=== PATIENT | male | born 1995 | race Caucasian/White ===

== ENCOUNTER 2016-06-02 23:23 | Emergency (ER) | payer OTHER ==
--- NOTE | 2016-06-02 23:37 | ED AMS/SEIZURE/WEAK/DIZZY ---
See Addendum History of Present Illness General Chief Complaint: ETOH/Drug Related Complaint Stated Complaint: BIBA FOR ETOH/UNCOOPERATIVE Source: patient, family, EMS, police Exam Limitations: intoxication Vital Signs & Intake/Output Vital Signs & Intake/Output Vital Signs Date Time Temp Pulse Resp B/P Pulse O2 O2 Flow FiO2 Ox Delivery Rate 06/03 1119 98.2 82 18 130/82 99 Room Air 06/03 0702 97.4 103 18 123/88 98 Room Air 06/03 0110 80 18 120/56 96 Room Air 06/03 0000 96 Room Air 06/02 2352 97.2 125 20 121/71 96 Room Air Allergies Coded Allergies: NO KNOWN ALLERGIES (06/02/16) Triage Nurses Notes Reviewed? yes Onset: Gradual Duration: hour(s): Timing: recent history Injury Environment: home Severity: moderate Modifying Factors: Improves With: rest. Associated Symptoms: belligerence, violent outbursts (.) HPI: 21-year-old gentleman brought in by the medics and police for agitation. Per the police, he had been drinking tonight at home. He fled the house. His parents grew worried and called 911. When he returned to the house he was intoxicated and unruly, but cooperative. The medics arrived. When he got onto the stretcher, he became aggressive, violent, and belligerent. He arrives in the emergency department shouting that he is the President and shouting that he is a Sith Lord from [employer]. The police say that he had run outside, fallen and hit his head. In discussed with parents, they express concern that he is a danger to himself, engaging in excessing drinking, nearly daily. 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 They would like crises evaluation. (NEELIMA FULLER,GILL Alexandra) Reconcile Medications Lorazepam (Ativan) 1 MG TABLET 1 TAB PO TID PRN withdrawal symptoms ten...[id number] (KETURAH FULLER,VINCE) Past History Travel History Traveled to [place] past 21 day No Medical History Any Pertinent Medical History? none Surgical History Surgical History: none Psychosocial History What is your primary language Cook Islander Family History Hx Contributory? No (NEELIMA FULLER,GILL Alexandra) Review of Systems Review of Systems Constitutional: Reports: no symptoms. EENTM: Reports: no symptoms. Respiratory: Reports: no symptoms. Cardiovascular: Reports: no symptoms. GI: Reports: no symptoms. Genitourinary: Reports: no symptoms. Musculoskeletal: Reports: no symptoms. Skin: Reports: no symptoms. Neurological/Psychological: Reports: no symptoms. Hematologic/Endocrine: Reports: no symptoms. Immunologic/Allergic: Reports: no symptoms. All Other Systems: Reviewed and Negative Comments Review of systems is compromised due to patient intoxication (NEELIMA FULLER,GILL Alexandra) Physical Exam Physical Exam General Appearance: well developed/nourished, anxious, mild distress Head: atraumatic, normal appearance Eyes: Bilateral: normal appearance, PERRL, EOMI. Ears, Nose, Throat: normal pharynx, normal ENT inspection Neck: normal inspection, supple, full range of motion Respiratory: normal breath sounds, chest non-tender, no respiratory distress, quiet respiration, lungs clear Cardiovascular: regular rate/rhythm Gastrointestinal: normal bowel sounds, soft, non-tender, no organomegaly Back: normal inspection, normal range of motion Extremities: small abrasions on left elbow and left forearm. Neurologic/Psych: no motor/sensory deficits, awake, alert, oriented x 3 Skin: intact, normal color, warm/dry Core Measures ACS in differential dx? No CVA/TIA Diagnosis: No Severe Sepsis Present: No Septic Shock Present: No (NEELIMA FULLER,GILL Alexandra) Progress Differential Diagnosis: alcoholism vs other vs depression Plan of Care: Orders Procedure Date/time Status Regular Diet 06/03 B Active Restraint- Discontinue 06/03 0330 Active ED CRISIS PSYCH CONSULT 06/03 0003 Active Patient Safety Monitor 06/03 0002 Active Restraint- Behavioral (Initial 06/03 0002 Active Continuous Observation Monitor 06/02 2332 Active URINE DRUG SCREEN FOR ER ONLY 06/02 2331 Complete ETHANOL 06/02 2331 Complete COMPREHENSIVE METABOLIC PANEL 06/02 233 Complete CBC WITHOUT DIFFERENTIAL 06/02 2330 Complete Restraint- Medical 06/02 2325 Active Laboratory Tests 06/03/16 0618: Urine Opiates Screen < 100.00, Methadone Screen < 40, Barbiturate Screen < 60, Ur Phencyclidine Scrn < 6.00, Amphetamines Screen < 100, U Benzodiazepines Scrn < 85, Urine Cocaine Screen < 50, Urine Cannabis Screen < 5.00 06/03/16 0057: Anion Gap 18 H, Estimated GFR > 60, BUN/Creatinine Ratio 12.9, Glucose 99, Calcium 9.3, Total Bilirubin 0.5, AST 43, ALT 40, Alkaline Phosphatase 64, Total Protein 7.5, Albumin 4.7, Globulin 2.8, Albumin/Globulin Ratio 1.7, CBC w Diff NO MAN DIFF REQ, RBC 4.76, MCV 91.6, MCH 31.8 H, RDW 12.9, MPV 8.2, Gran % 74.4 , Lymphocytes % 16.1 L, Monocytes % 7.1, Eosinophils % 1.9, Basophils % 0.5, Absolute Granulocytes 5.0, Absolute Lymphocytes 1.1 L, Absolute Monocytes 0.5, Absolute Eosinophils 0.1, Absolute Basophils 0, PUBS MCHC 34.7, Serum Alcohol 278.0 7:10 am 06/03 Patient signed out to me by Dr. Bateman. Pending crisis evaluation. (KETURAH FULLER,VINCE) Initial ED EKG: none Hand-Off Endorsed To: VINCE REBOLLAR MD Endorsed Time: 0700 Pending: consult, labs (NEELIMA FULLER,GILL Alexandra) Departure Departure Condition: Stable Referrals: MARYBETH FULLER,ALYSON Horne (PCP/Family) (NEELIMA FULLER,GILL Alexandra) Departure Time of Disposition: 1413 Disposition: HOME OR SELF CARE Clinical Impression Primary Impression: Alcoholism Secondary Impressions: Depressive disorder Additional Instructions: FOLLOW UP WITH STEPS TO RECOVERY INSTRUCTED BY THE RESEARCH AIDE. Departure Forms: Customer Survey General Discharge Information Prescriptions: Current Visit Scripts Lorazepam (Ativan) 1 TAB PO TID PRN withdrawal symptoms #10 TAB Ref 1 ten...[id number] (VINCE REBOLLAR MD)
[2016-06-03 01:10] LABS: ABSOLUTE BASOPHIL COUNT 0 /CUMM (0.0-0.2); ABSOLUTE EOSINOPHIL COUNT 0.1 /CUMM (0.0-0.7); ABSOLUTE LYMPH COUNT 1.1 /CUMM (1.2-3.4); ABSOLUTE MONOCYTE COUNT 0.5 /CUMM (0.10-0.60); BASOPHIL % 0.5 % (0.0-2.0); EOSINOPHIL % 1.9 % (0-5); GRANULOCYTE % 74.4 % (42.2-75.2); HEMATOCRIT 43.6 % (42-52); MEAN CORPUSCULAR HGB 31.8 PG (27.0-31.0); MEAN CORPUSCULAR HGB CONC 34.7 G/DL (33.0-37.0); MEAN CORPUSCULAR VOLUME 91.6 FL (80.0-94.0); MEAN PLATELET VOLUME 8.2 FL (7.4-10.4); PLATELET COUNT 287 /CUMM (130-400); RBC DISTRIBUTION WIDTH 12.9 % (11.5-14.5); RED BLOOD CELL CT 4.76 /CUMM (4.70-6.10); WHITE BLOOD CELL COUNT 6.7 /CUMM (4.8-10.8)
[2016-06-03] MEDS ORDERED: ATIVAN1 M1 PO (04:31)
--- NOTE | 2016-06-03 10:46 | ED PSYCH CRISIS CONSULTATION ---
Crisis Consult Basic Assessment Date of Consult: 06/03/16 Responsible Person/Accompanied By: KARLO Insurance Authorization: Insurance #1: Insurance name: [employer] Phone number: Policy number: [id number] Group number: [id number] Authorization number: ED Provider: Patient's ED Provider: NEELIMA FULLER,NICK Alexandra Primary Care Physician: Patient's PCP: MARYBETH FULLER,ALYSON Horne PCP's Current Psychiatrist: None Chief Complaint: ETOH/Drug Related Complaint Patient's Quote: "drinking alcohol heavy" Present Illness: Pt is a 21 year old male, arrived to ER last night after becoming intoxicated, pt denies si/hi/ah/vh. He has no psych history. Pt reports feeling upset his friends "left", meaning they moved and went to college or got jobs etc. Pt has poor hygiene, teeth are noticeably not cleaned, and his hair is greasy. Pt exhibits little insight to his current situation he reports no symptomology and is minimizing his drinking. "Im not depressed, I don't drink that much, last night was not a common thing". Pt probed with more questions and became defensive. Pt states "I just want to go home", pt informed that we will need a plan in place to help him manage his life better. Pt reports he doesn't shower often, and stays home and "watches TV" all day, at his parent home. Pt tried to get a job at [employer] and it didn't last too long. Pt unsure what his goals are at this time, he shook his hand side to side when asked if he would like help to stop drinking. Reviewed levels of care and referral resources pt agrees to do an intake with [facility] and is aware his parents are on board with this referral. Patient's Address: [address] [place] [address] Other Phone Number: Who Do You Live With? 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 father interested in resources for etoh problem. Allergies - Coded Allergies: NO KNOWN ALLERGIES (06/02/16) Current Medications - Scheduled PRN Medications Lorazepam (Ativan) 1 MG TABLET 1 TAB PO TID PRN withdrawal symptoms #10 TAB [facility] Laboratory Results: Laboratory Tests 06/03/16 0618: Urine Opiates Screen < 100.00, Methadone Screen < 40, Barbiturate Screen < 60, Ur Phencyclidine Scrn < 6.00, Amphetamines Screen < 100, U Benzodiazepines Scrn < 85, Urine Cocaine Screen < 50, Urine Cannabis Screen < 5.00 06/03/16 0057: Anion Gap 18 H, Estimated GFR > 60, BUN/Creatinine Ratio 12.9, Glucose 99, Calcium 9.3, Total Bilirubin 0.5, AST 43, ALT 40, Alkaline Phosphatase 64, Total Protein 7.5, Albumin 4.7, Globulin 2.8, Albumin/Globulin Ratio 1.7, CBC w Diff NO MAN DIFF REQ, RBC 4.76, MCV 91.6, MCH 31.8 H, RDW 12.9, MPV 8.2, Gran % 74.4 , Lymphocytes % 16.1 L, Monocytes % 7.1, Eosinophils % 1.9, Basophils % 0.5, Absolute Granulocytes 5.0, Absolute Lymphocytes 1.1 L, Absolute Monocytes 0.5, Absolute Eosinophils 0.1, Absolute Basophils 0, PUBS MCHC 34.7, Serum Alcohol 278.0 Past History Past Medical History Neurological: NONE EENT: NONE Cardiovascular: NONE Respiratory: NONE Gastrointestinal: NONE Hepatic: NONE Renal: PKU Musculoskeletal: NONE Psychiatric: NONE Endocrine: NONE Blood Disorders: NONE Cancer(s): NONE 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 Past Surgical History Surgical History: 1 Psychosocial History Strengths/Capabilities: pt agreeable to treatment, although unsire how to take the first step, completed intake over the phone for [facility] has supportive family Physical Limitations (Interventions): none Psychiatric Treatment History Psych Treatment Psychiatric Treatment No Inpatient Treatment No Outpatient Treatment No Diagnosis by History: denies/none known Substance Use/Abuse History Drug Use/Abuse Substances Used/Abused No Substance Abuse Treatment Substance Abuse Treatment Past Substance Abuse [place] No Comments: denies/no history Current Mental Status Mental Status Orientation: Person, Place, Situation Affect: Anxious, Angry, Lonely, Variable Speech: Pressured Neuro-vegetative: Appetite Decreased, Helpless, Loss of Interest, Sleep Disturbance Appearance Appearance- Dress/Hygiene: unkempt, poor hygiene Behaviors Thought Process: Irrational Thought Content: WNL Memory: WNL Insight: Poor SI/HI Risk Assessment Past Suicidal Ideation/Attempts No Current Suicidal Ideation/Att No Past Homicidal Ideation/Att: No Current Homicidal Ideation/Attempts No Degree of Intent: None Risk Factors: age (under 24/over 65), chronic/serious med cond., substance abuse , male, limited support Lethality Ratin PTSD Checklist PTSD Done? patient declined ED Management Sitter: Yes Restraints: No DSM5/PS Stressors/Medical Prob Diagnosis' (DSM 5, Stressors, Medical): Etoh Dependence F10.20 Unspecifed Depression F32.9 Current GAF: 30 Departure Disposition Psych Medical Clearance Date: 06/03/16 Medically Cleared at: 1100 Time Started: 1100 Time Ended: 1230 Psychiatrist Consulted: Nick Fuentes MD Date Disposition Established: 06/03/16 Time Disposition Established: 1230 Plan for Disposition - Modality: Inpatient Detoxification Facility: referred to [facility]/ intake started Follow-up Appt Date: 06/03/16 Follow-Up Appt Time: 1320 Contact: [facility] "Rafael" Telephone: [phone] Rationale for Disposition: Consulted with Dr. Fuentes, pt not meeting criteria for inpatinet, spoke with pt and parents and began the intake process/referral to [facility], spoke with Rafael, and he will continue to engage the pt and family. Pt and family agree with referral. Referrals MARYBETH FULLER,ALYSON Horne (PCP/Family)
[2016-06-03 11:19] VITALS: BP 130/82
== END 2016-06-03 14:26 ==
LOC: ERH 23:23
PROVIDERS: Pediatrics
DX: F10.20 Alcohol dependence, uncomplicated (principal); F32.9 Major depressive disorder, single episode, unspecified
CPT/HCPCS: 80307; 96372; G0463; G0480

== ENCOUNTER 2017-09-14 20:10 | Emergency (ER) | payer OTHER ==
[~2017-09-14 20:10] MED LIST: ATIVAN1 M1 PO
[2017-09-14 20:53] LABS: ABSOLUTE BASOPHIL COUNT 0.1 /CUMM (0.0-0.2); ABSOLUTE EOSINOPHIL COUNT 0.6 /CUMM (0.0-0.7); ABSOLUTE GRANULOCYTE CT 3.7 /CUMM (1.4-6.5); ABSOLUTE LYMPH COUNT 2.2 /CUMM (1.2-3.4); ABSOLUTE MONOCYTE COUNT 0.6 /CUMM (0.10-0.60); BASOPHIL % 0.9 % (0.0-2.0); EOSINOPHIL % 8.3 % (0-5); GRANULOCYTE % 51.5 % (42.2-75.2); HEMATOCRIT 45.3 % (42-52); MEAN CORPUSCULAR HGB CONC 33.8 G/DL (33.0-37.0); MEAN CORPUSCULAR VOLUME 91.7 FL (80.0-94.0); MEAN PLATELET VOLUME 8.8 FL (7.4-10.4); PLATELET COUNT 307 /CUMM (130-400); RBC DISTRIBUTION WIDTH 11.9 % (11.5-14.5); RED BLOOD CELL CT 4.93 /CUMM (4.70-6.10); WHITE BLOOD CELL COUNT 7.2 /CUMM (4.8-10.8)
--- NOTE | 2017-09-14 21:51 | ED GENERAL ADULT ---
History of Present Illness General Chief Complaint: ETOH/Drug Related Complaint Stated Complaint: BIBA ETOH Source: patient Exam Limitations: no limitations Vital Signs & Intake/Output Vital Signs & Intake/Output Vital Signs Date Time Temp Pulse Resp B/P B/P Pulse O2 O2 Flow FiO2 Mean Ox Delivery Rate 09/15 0758 98.7 102 22 138/80 100 Room Air 09/15 0614 97.6 70 18 120/70 100 Room Air 09/15 0400 94 20 114/81 100 Room Air 09/15 0037 97.9 106 18 127/76 100 Room Air 09/14 2029 97.6 122 18 142/88 99 Room Air Room Air ED Intake and Output 09/15 0000 09/14 1200 Intake Total 400 Output Total 600 Balance -200 Intake, Oral 400 Output, Urine 600 Allergies Coded Allergies: NO KNOWN ALLERGIES (06/02/16) Triage Note: PT BIBA ON A PEER WITH +ETOH AFTER VERBAL ARGUMENT WITH PARENTS WHO CALLED THE POLICED. PT ARRIVES ASOMEWHAT RESISTENT TO CARE, SECURITY PRESENT. EXPLAINED POLICY AND PROCEDURES, PT WANDED AND NOW CHANGING INTO BLUE SCRUBS. PT ADMITS TO DRINKING 4 BEERS TODAY. ACCORDING TO PEER PT IS NONCOMPLIANT WITH PKU MEDS. PT DIAMOND SI/HI. Triage Nurses Notes Reviewed? yes Onset: Abrupt Duration: week(s):, changing over time, continues in ED, getting worse Timing: recent history Injury Environment: home Severity: moderate, severe No Modifying Factors: none HPI: 22-year-old male past medical history of PKU brought in by ambulance on a paper for evaluation of intoxication and suicidal ideation. Patient's parents put that they called the police because patient was intoxicated and verbally and physically aggressive. They report that he's been drinking daily for weeks now. Usually starts drinking in the early afternoon they deny any history of withdrawal seizures. He also had these made comments that he does not want to live anymore. He also has been noncompliant with his PKU diet and has not been following up with his doctors. They also think he's been abusing Percocet that he steals from his dad. The patient arrives intoxicated and belligerent. He denies any concerns he is unable to contribute to the history. (Bolivar DAWN,Lester) Reconcile Medications No Known Home Medications (Cassy FULLER,Francis) Past History Travel History Traveled to [place] past 21 day No Medical History Any Pertinent Medical History? 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 No (Lester Craig) Review of Systems Review of Systems Constitutional: Reports: no symptoms. EENTM: Reports: no symptoms. Respiratory: Reports: no symptoms. Cardiovascular: Reports: no symptoms. GI: Reports: no symptoms. Genitourinary: Reports: no symptoms. Musculoskeletal: Reports: no symptoms. Skin: Reports: no symptoms. Neurological/Psychological: Reports: no symptoms. Hematologic/Endocrine: Reports: no symptoms. Immunologic/Allergic: Reports: no symptoms. All Other Systems: Reviewed and Negative (Lester Craig) Physical Exam Physical Exam General Appearance: well developed/nourished, no apparent distress, alert, awake , anxious, intoxicated Head: atraumatic, normal appearance Eyes: Bilateral: normal appearance, PERRL, EOMI. Ears, Nose, Throat: hearing grossly normal Neck: normal inspection, supple, full range of motion Respiratory: normal breath sounds, chest non-tender, no respiratory distress, lungs clear Cardiovascular: regular rate/rhythm, normal peripheral pulses Peripheral Pulses: 2+ radial (R), 2+ radial (L) Gastrointestinal: normal bowel sounds, soft, non-tender, no organomegaly Back: normal inspection, normal range of motion, no vertebral tenderness Extremities: normal inspection, normal range of motion, no edema Neurologic/Psych: no motor/sensory deficits, awake, alert, oriented x 3, normal gait, normal mood/affect Skin: intact, normal color, warm/dry Lymphatic: no anterior cervical chiara Core Measures ACS in differential dx? No CVA/TIA Diagnosis: No Sepsis Present: No Sepsis Focused Exam Completed? No (Lester Craig) Progress Differential Diagnoses I considered the following diagnoses in my evaluation of the patient: [Alcohol intoxication, drug intoxication, drug withdrawal, electrolyte unreality, dehydration] Plan of Care: Orders Procedure Date/time Status Regular Diet 09/15 B Active Patient Safety Monitor 09/15 1900 Active Patient Safety Monitor 09/15 1500 Active Patient Safety Monitor 09/15 1100 Active Patient Safety Monitor 09/15 0700 Active ED CRISIS PSYCH CONSULT 09/14 2102 Active URINE DRUG SCREEN FOR ER ONLY 09/14 2101 Complete URINALYSIS 09/14 2101 Complete Patient Safety Monitor 09/15 2015 Active URINE DRUG SCREEN FOR ER ONLY 09/15 2015 Complete URINALYSIS 09/15 2015 Complete MAGNESIUM 09/15 2015 Complete ETHANOL 09/15 2015 Complete COMPREHENSIVE METABOLIC PANEL 09/15 2015 Complete CBC WITHOUT DIFFERENTIAL 09/15 2015 Complete Laboratory Tests 09/14/172102: Urine Opiates Screen < 100, Methadone Screen < 40, Barbiturate Screen < 60, Ur Phencyclidine Scrn < 6.00, Amphetamines Screen < 100, U Benzodiazepines Scrn < 85, Urine Cocaine Screen < 50, Urine Cannabis Screen < 5.00, Urine Color YEL, Urine Clarity CLEAR, Urine pH 6.5, Ur Specific [place] <= 1.005, Urine Protein NEG, Urine Ketones NEG, Urine Nitrite NEG, Urine Bilirubin NEG, Urine Urobilinogen 0.2, Ur Leukocyte Esterase NEG, Ur Microscopic EXAM NOT REQUIRED, Urine Hemoglobin NEG, Urine Glucose NEG 09/14/172039: Anion Gap 17 H, Estimated GFR > 60, BUN/Creatinine Ratio 8.8, Glucose 88, Calcium 10.1, Magnesium 2.0, Total Bilirubin 0.6, AST 31, ALT 42, Alkaline Phosphatase 66, Total Protein 7.4, Albumin 4.7, Globulin 2.7, Albumin/Globulin Ratio 1.7, CBC w Diff NO MAN DIFF REQ, RBC 4.93, MCV 91.7, MCH 31.0, MCHC 33.8, RDW 11.9, MPV 8.8, Gran % 51.5, Lymphocytes % 31.1, Monocytes % 8.2, Eosinophils % 8.3 H, Basophils % 0.9, Absolute Granulocytes 3.7, Absolute Lymphocytes 2.2, Absolute Monocytes 0.6, Absolute Eosinophils 0.6, Absolute Basophils 0.1, Serum Alcohol 130.0 09/14/172038: Urine Opiates Screen < 100, Methadone Screen < 40, Barbiturate Screen < 60, Ur Phencyclidine Scrn < 6.00, Amphetamines Screen < 100, U Benzodiazepines Scrn < 85, Urine Cocaine Screen < 50, Urine Cannabis Screen < 5.00, Urine Color , Urine Clarity CLEAR, Urine pH 6.5, Ur Specific [place] <= 1.005, Urine Protein NEG, Urine Ketones NEG, Urine Nitrite NEG, Urine Bilirubin NEG, Urine Urobilinogen 0.2, Ur Leukocyte Esterase NEG, Ur Microscopic EXAM NOT REQUIRED, Urine Hemoglobin NEG, Urine Glucose NEG Patient seen and evaluated. He arrives clinically intoxicated. According the parents he was aggressive physical and verbally. Parents report that he has made suicidal comments and has been drinking daily. He does not have a history of withdrawal seizures. Patient is unable to contribute to history due to his intoxication. His exam does not show any significant findings. Labs ordered patient will see crisis. He is on a police paper. Blood work does not show any acute findings. Alcohol level is increased to 1: 30. Patient will be held over in the emergency department for crisis evaluation patient's another Dr. Bateman pending crisis eval Initial ED EKG: none Hand-Off Endorsed To: Nick Bateman MD Endorsed Time: 0124 Pending: consult (crisis) (Lester Craig) Differential Diagnoses I considered the following diagnoses in my evaluation of the patient: [Alcohol intoxication, drug intoxication, drug withdrawal, electrolyte unreality, dehydration] Hand-Off Endorsed To: Francis Madera MD Endorsed Time: 0700 Pending: consult (Nick Bateman MD) Comments: Cleared by psychiatry for discharge. (Francis Madera MD) Departure Departure Condition: Stable Clinical Impression Primary Impression: Alcohol intoxication Qualifiers: Complication of substance-induced condition: uncomplicated Qualified Code: F10.920 - Alcohol use, unspecified with intoxication, uncomplicated Referrals: Madison Farah MD (PCP/Family) (Lester Craig) PA/[employer] [facility] Co-Sign Statement Statement: ED Attending supervision documentation- [] I saw and evaluated the patient. I have also reviewed all the pertinent lab results and diagnostic results. I agree with the findings and the plan of care as documented in the PA's/[employer] K[employer]'s documentation. [x] I have reviewed the ED Record and agree with the PA's/[employer] [facility]'s documentation. 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
[2017-09-15 10:24] VITALS: BP 140/90
--- NOTE | 2017-09-15 12:03 | ED PSYCH CRISIS CONSULTATION ---
See Addendum Crisis Consult Basic Assessment Date of Consult: 09/15/17 Responsible Person/Accompanied By: Self Insurance Authorization: Insurance #1: Insurance name: THEODORE SMITH Phone number: Policy number: [id number] Group number: [id number] Authorization number: ED Provider: Patient's ED Provider: Lester Craig Primary Care Physician: Patient's PCP: Madison Farah MD PCP's Current Psychiatrist: None. Chief Complaint: ETOH/Drug Related Complaint Patient's Quote: "I had four beers. My dad and I got into it". Present Illness: Pt is a 22 year old white male BIBA on a PEER last night from his home. Reportedly pt had four beers and conflict with his parents ensued. Pt stated that he and his father are alike in ways which seems to also cause an increase in conflict. Pt claimed he drinks beer approximately four times per week. He stated he drinks 2-4 beers per occasion. It seems the current problem at home has been going on for some time. This is the third time this year pt has been sent to the ED for similar problems. Pt also is diagnosed with PKU which causes an increase in amino acid build up in the body. Pt explained that his medical condition can also cause him to feel an increase in anxiety and fatigue. Pt admitted that he doesn't always follow the recommended plan of treatment for his condition. He is not supposed to eat protein and is prescribed medications which he fails to take as prescribed. Pt reported that he has no significant psychiatric/mental health treatment. He stated that he currently sees Ceferino Aly from [facility] for weekly outpatient counseling. He stated that he finds it helpful and wants to continue. Pt stated that he only drinks beer and denied any other substance use. Pt also denied any significant substance abuse treatment but stated that he was inpatient in the past here at [facility]. He believes the inpatient stay was for his alcohol use. Pt seemed to minimize his use and it's effects. Pt lives at home with his parents. Pt stated that he has a 1/2 brother on his father's side. Brother lives in [facility] [facility]. Pt stated that he dropped out of high school after completing the 11th grade. He stated that he does have his GED. Pt stated that he doesn't have much of a work history and claimed that his goals tend to be unrealistic. He stated that he would love to be adventurous like Melany Poole. 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 Pt stated that he considers himself to be a loner and is not currently in a relationship. He stated that he hasn't dated in a long time but has some friends from work. Pt was alert and oriented. His thoughts and speech were clear, logical and organized. He was malodorous and complained of mosquito bites on his legs. He continuously scratched his legs throughout the evaluation. Pt stated that he has some depression but focused more on his anxiety. He agreed that his noncompliance with his medical condition exacerbates his anxiety. Pt perseverates and has repetitive thoughts. Pt was unable to clearly pinpoint as to why he becomes noncompliant. Pt explained that he is disorganized with his belongings and has difficulty with motivation. Pt denied any history of or current suicidal or homicidal ideations. A C-SSRS was completed. Pt did not express any suicidal behavior in the past week or lifetime. The one significant activating event is the ongoing conflict with his parents. Clinical status includes pt's substance abuse, medical condition, agitation and anxiety. Protective factors include pt identifying reasons for living, the fact that he lives with his supportive parents and that he is engaged in work. Pt is not currently considered at heightened risk for harm to self and or others. Clinician was able to talk with pt's father (Brett) on the phone. Brett explained that pt's behavior and drinking has been going on for some time now. He claimed that pt had been drinking "almost every day that he can get it" since age 21. He stated that pt sometimes falls down when intoxicated. He also vomits a lot. Father claimed pt is very resistant and father would like to see things to start turning around. case was reviewed with the [employer] psychiatrist. Pt's current needs meet an outpatient level of care which is recommended at this time. Pt agreed with recommendation to continue outpatient counseling with his current therapist in addition to [facility]. Pt's father also agreed with the recommendation. Clinician was able to leave a voice message for his therapist with information on how to reach the crisis unit. Clinician also emailed IOP with a request to reach out to pt to schedule an intake appointment. Pt was given information on how to reach [facility] as well. Patient's Address: [address] [place] [address] Other Phone Number: Who Do You Live With? Family Family/Informants Interviewed: Pt's father Brett Weiss [phone] Allergies - Coded Allergies: NO KNOWN ALLERGIES (06/02/16) Current Medications - No Known Home Medications Laboratory Results: Laboratory Tests 09/14/172102: Urine Opiates Screen < 100, Methadone Screen < 40, Barbiturate Screen < 60, Ur Phencyclidine Scrn < 6.00, Amphetamines Screen < 100, U Benzodiazepines Scrn < 85, Urine Cocaine Screen < 50, Urine Cannabis Screen < 5.00, Urine Color YEL, Urine Clarity CLEAR, Urine pH 6.5, Ur Specific [place] <= 1.005, Urine Protein NEG, Urine Ketones NEG, Urine Nitrite NEG, Urine Bilirubin NEG, Urine Urobilinogen 0.2, Ur Leukocyte Esterase NEG, Ur Microscopic EXAM NOT REQUIRED, Urine Hemoglobin NEG, Urine Glucose NEG 09/14/172039: Anion Gap 17 H, Estimated GFR > 60, BUN/Creatinine Ratio 8.8, Glucose 88, Calcium 10.1, Magnesium 2.0, Total Bilirubin 0.6, AST 31, ALT 42, Alkaline Phosphatase 66, Total Protein 7.4, Albumin 4.7, Globulin 2.7, Albumin/Globulin Ratio 1.7, CBC w Diff NO MAN DIFF REQ, RBC 4.93, MCV 91.7, MCH 31.0, MCHC 33.8, RDW 11.9, MPV 8.8, Gran % 51.5, Lymphocytes % 31.1, Monocytes % 8.2, Eosinophils % 8.3 H, Basophils % 0.9, Absolute Granulocytes 3.7, Absolute Lymphocytes 2.2, Absolute Monocytes 0.6, Absolute Eosinophils 0.6, Absolute Basophils 0.1, Serum Alcohol 130.0 09/14/172038: Urine Opiates Screen < 100, Methadone Screen < 40, Barbiturate Screen < 60, Ur Phencyclidine Scrn < 6.00, Amphetamines Screen < 100, U Benzodiazepines Scrn < 85, Urine Cocaine Screen < 50, Urine Cannabis Screen < 5.00, Urine Color , Urine Clarity CLEAR, Urine pH 6.5, Ur Specific [place] <= 1.005, Urine Protein NEG, Urine Ketones NEG, Urine Nitrite NEG, Urine Bilirubin NEG, Urine Urobilinogen 0.2, Ur Leukocyte Esterase NEG, Ur Microscopic EXAM NOT REQUIRED, Urine Hemoglobin NEG, Urine Glucose NEG Past History Past Medical History Neurological: NONE EENT: NONE Cardiovascular: NONE Respiratory: NONE Gastrointestinal: NONE Hepatic: NONE Renal: PKU Musculoskeletal: NONE Psychiatric: NONE Endocrine: NONE Blood Disorders: NONE Cancer(s): NONE 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 Physical Limitations (Interventions): none Psychiatric Treatment History Psych Treatment Psychiatric Treatment Yes Inpatient Treatment No Outpatient Treatment Yes Location of [facility] Reason for Treatment counseling Dates of Treatment Past month Response to Treatment Pt stated that he feels his therapist is helpful Diagnosis by History: denies/none known Substance Use/Abuse History Drug Use/Abuse Substances Used/Abused Yes Substance Used/Abused Alcohol First Use age 21 Last Used yesterday How much used/taken 4 beers How often 3-4 times per week For how long since age 21 Substance Abuse Treatment Substance Abuse Treatment Past Substance Abuse [place] Yes Inpatient Treatment Yes Outpatient Treatment No Location of Treatment [facility] Reason for Treatment Pt believes that he was inpatient due to his alcohol abuse. Dates of Treatment 2017 Response to Treatment completed Comments: Pt denied psychiatric history and sees his inpatient stay as a result of his alcohol abuse. Current Mental Status Mental Status Orientation: Person, Place, Situation Affect: WNL Speech: WNL Neuro-vegetative: Concentration Poor Appearance Appearance- Dress/Hygiene: Pt dressed in hospital scrubs. Malodorous Behaviors Thought Process: WNL Thought Content: WNL Memory: WNL Insight: Fair SI/HI Risk Assessment Past Suicidal Ideation/Attempts No Current Suicidal Ideation/Att No Past Homicidal Ideation/Att: No Current Homicidal Ideation/Attempts No Degree of Intent: None Risk Factors: age (under 24/over 65), chronic/serious med cond., SA/MH hospitalized, substance abuse, male Lethality Ratin PTSD Checklist PTSD Done? patient declined ED Management Sitter: Yes Restraints: No DSM5/PS Stressors/Medical Prob Diagnosis' (DSM 5, Stressors, Medical): F41.9 Unspecified Anxiety Disorder F10.20 Alcohol Use Disorder, Moderate Current GAF: 45 Departure Disposition Psych Medical Clearance Date: 09/15/17 Medically Cleared at: 0830 Time Started: 829 Time Ended: 929 Psychiatrist Consulted: Dr. Gordon Date Disposition Established: 09/15/17 Time Disposition Established: 999 Plan for Disposition - Modality: IOP Facility: [facility] Rationale for Disposition: case was reviewed with the [employer] psychiatrist. Pt's current needs meet an outpatient level of care which is recommended at this time. Pt agreed with recommendation to continue outpatient counseling with his current therapist in addition to [facility] program. Pt's father also agreed with the recommendation. Clinician was able to leave a voice message for his therapist with information on how to reach the crisis unit. Clinician also emailed [facility] with a request to reach out to pt to schedule an intake appointment. Pt was given information on how to reach [facility] as well. Referrals Madison Farah MD (PCP/Family)
== END 2017-09-15 10:24 ==
LOC: ERH 20:10
PROVIDERS: Physician Assistant Medical
DX: F10.129 Alcohol abuse with intoxication, unspecified (principal)
CPT/HCPCS: 80307; 81003; G0463; G0480